=== PATIENT | male | born 1990 | race Caucasian/White ===

== ENCOUNTER → 2020-09-21 | Outpatient (CLI) | payer BC, OTHER | LOC: RAD 15:24 | PROVIDERS: ATTEND Nurse Practitioner | DX: M54.6 Pain in thoracic spine (principal) ==

== ENCOUNTER 2020-10-21 19:20 | Emergency (ER) | payer BC, OTHER ==
[~2020-10-21] VITALS: Ht 190.5 cm; Wt 99.8 kg
[2020-10-21 19:23] VITALS: BP 133/81
== END 2020-10-21 20:10 | disposition home or self-care (01) ==
LOC: ER 19:20
DX: S61.211A Laceration without foreign body of left index finger without damage to nail, initial encounter (principal); W26.0XXA Contact with knife, initial encounter; Y93.89 Activity, other specified; Y92.89 Other specified places as the place of occurrence of the external cause; Y99.8 Other external cause status